=== PATIENT | male | born 1955 | race Caucasian/White ===

== ENCOUNTER → 2020-06-05 | Outpatient (CLI) | payer MEDICARE ==
[~2020-06-05] MED LIST: ASPI81TA45 PO; ATOR40TA78 PO; CARV3.122 PO; CLOP75TA PO; LISI2.5T PO; MULT-449 PO; OMEG1CAP39 PO; VARE1TAB21 PO
[2020-06-05 15:07] LABS: ALANINE AMINOTRANSFERASE 23 U/L (12-78); ALBUMIN 2.7 g/dL (3.4-5.0); ANION GAP 5 mmol/L (5-15); CALCIUM 8.4 mg/dL (8.5-10.1); CHLORIDE 108 mmol/L (98-107); CREATININE 0.66 mg/dL (0.7-1.3)
[2020-06-05 15:09] LABS: ALKALINE PHOSPHATASE 124 U/L (45-117); BILIRUBIN,TOTAL 0.4 mg/dL (0.2-1.0); TOTAL PROTEIN 4.9 g/dL (6.4-8.2)
== END | disposition home or self-care (01) ==
LOC: STAR 13:05
PROVIDERS: ATTEND Surgery Vascular Surgery
DX: Z01.812 Encounter for preprocedural laboratory examination (principal); Z20.822 Contact with and (suspected) exposure to COVID-19; I45.10 Unspecified right bundle-branch block; R94.31 Abnormal electrocardiogram [ECG] [EKG]
CPT/HCPCS: 36415; 80053; 93005; U0003

== ENCOUNTER 2020-06-11 06:26 | Day surgery (SDC) | payer MEDICARE ==
[~2020-06-11] VITALS: Ht 165.1 cm; Wt 52.7 kg
[2020-06-11] MEDS ORDERED: BUPIVACAINE/PF 0.5% ONE (06:43)
[2020-06-11] MEDS ORDERED: EPINEPHRINE 1 MG/ML, 1ML ONE (06:43)
[2020-06-11] MEDS ORDERED: BACITRACIN 50,000 UNIT ONE (06:44)
[2020-06-11 06:50] VITALS: BP 123/80
[2020-06-11] MEDS ORDERED: CHLORHEXIDINE 15 ML UDC MM STA (06:55)
[2020-06-11] MEDS ORDERED: LACTATED RINGERS 1,000 ML IV SCH (07:00)
[2020-06-11] MEDS ORDERED: HYDROmorphone 1 MG/ML, 1ML INJ IVPush PRN (07:30)
[2020-06-11] MEDS ORDERED: EPHEDRINE 50 MG/ML, 1ML IVPush PRN (07:30)
[2020-06-11] MEDS ORDERED: OXYcodone 5 MG/5 ML ORAL.SOL UDC PO PRN (07:30)
[2020-06-11] MEDS ORDERED: hydrALAzine 20 MG/ML, 1ML IV PRN (07:30)
[2020-06-11] MEDS ORDERED: PROMETHAZINE 25 MG/ML, 1ML IVPush PRN (07:30)
[2020-06-11] MEDS ORDERED: FENTANYL PF 100 MCG/2ML IV PRN (07:30)
[2020-06-11] MEDS ORDERED: ONDANSETRON 2MG/ML, 2ML IVPush PRN (07:30)
[2020-06-11] MEDS ORDERED: ACETAMINOPHEN 500 MG TABLET PO ONE (07:30)
[2020-06-11] MEDS ORDERED: LABETALOL 5MG/ML, 20ML IV PRN (07:30)
[2020-06-11] MEDS ORDERED: HYDR-1067 PO (09:03)
[2020-06-11] MEDS ORDERED: FENTANYL PF 100 MCG/2ML ONE (09:11)
[2020-06-11] MEDS ORDERED: KETOROLAC 30 MG/1 ML ONE (09:30)
[2020-06-11] MEDS ORDERED: CEFAZOLIN 1,000 MG ONE (09:33)
[2020-06-11] MEDS ORDERED: SUCCINYLCHOLINE 20 MG/ML, 10ML ONE (09:33)
[2020-06-11] MEDS ORDERED: ONDANSETRON 2MG/ML, 2ML ONE (09:33)
[2020-06-11] MEDS ORDERED: DEXAMETHASONE 4 MG/ML, 1ML ONE (09:33)
[2020-06-11] MEDS ORDERED: PROPOFOL 10 MG/ML, 20ML ONE (09:33)
[2020-06-11] MEDS ORDERED: EPHEDRINE 50 MG/ML, 1ML ONE (09:37)
[2020-06-11] MEDS ORDERED: OXYcodone 5 MG/5 ML ORAL.SOL UDC ONE (10:15)
== END 2020-06-11 11:55 | disposition home or self-care (01) ==
LOC: OUT 06:26
PROVIDERS: ATTEND Surgery Vascular Surgery
DX: K40.90 Unilateral inguinal hernia, without obstruction or gangrene, not specified as recurrent (principal); I10 Essential (primary) hypertension; E78.5 Hyperlipidemia, unspecified; J44.9 Chronic obstructive pulmonary disease, unspecified; I25.10 Atherosclerotic heart disease of native coronary artery without angina pectoris; M19.90 Unspecified osteoarthritis, unspecified site; I73.9 Peripheral vascular disease, unspecified; F17.210 Nicotine dependence, cigarettes, uncomplicated; Z79.82 Long term (current) use of aspirin; Z79.02 Long term (current) use of antithrombotics/antiplatelets; Z79.899 Other long term (current) drug therapy; Z86.73 Personal history of transient ischemic attack (TIA), and cerebral infarction without residual deficits; Z98.52 Vasectomy status; Z98.890 Other specified postprocedural states; Z82.49 Family history of ischemic heart disease and other diseases of the circulatory system; Z83.3 Family history of diabetes mellitus
CPT/HCPCS: 49505; C1781; J0171; J0330; J0690; J1100; J1885; J2405; J2704; J3010; J7120

== ENCOUNTER → 2020-06-19 | Outpatient (CLI) | payer MEDICARE ==
[~2020-06-19] MED LIST changes: +HYDR-1067 PO
== END | disposition home or self-care (01) ==
LOC: CVU 13:39
PROVIDERS: ATTEND Surgery Vascular Surgery
DX: I65.23 Occlusion and stenosis of bilateral carotid arteries (principal); I73.9 Peripheral vascular disease, unspecified; I10 Essential (primary) hypertension; Z86.73 Personal history of transient ischemic attack (TIA), and cerebral infarction without residual deficits
CPT/HCPCS: 93880; 93922